=== PATIENT | female | born 1955 | race American Indian/Alaskan Native ===

== ENCOUNTER 2017-04-07 10:23 | Outpatient (CLI) | payer MEDICARE ==
--- NOTE | 2017-04-07 11:35 | Mammography Report ---
BILATERAL MAMMOGRAM: FINDINGS: The breasts are almost entirely fat (<25% glandular). No mass, distortion, suspicious calcification, or skin change is seen. There is no significant change compared to her prior exam in May 2012. CAD was utilized. IMPRESSION: Negative mammogram. There is no mammographic evidence of malignancy. RECOMMENDATION: Follow-up per ACS guidelines. BI-RADS CATEGORY: 1 = Negative ACR BI-RADS MAMMOGRAPHIC CODES: 0 = Needs additional imaging evaluation; 1 = Negative; 2 = Benign; 3 = Probably benign; 4 = Suspicious; 5 = Malignant; 6 = Known biopsy-proven malignancy COMMENT: 1. Dense breast tissue, i.e., adenosis, fibrocystic changes, etc., may obscure an underlying neoplasm. 2. Approximately 10% of cancers are not detected with mammography. 3. A negative mammography report should not delay biopsy if a clinically suspicious mass is present. COMMENT: Patient follow-up letters are generated in [employer]GEN.
== END 2017-04-07 10:24 | disposition home or self-care (01) ==
LOC: SPVWC 10:23
PROVIDERS: ATTEND Internal Medicine
DX: Z12.31 Encounter for screening mammogram for malignant neoplasm of breast (principal)
CPT/HCPCS: 77067; G0202

== ENCOUNTER 2017-04-17 15:02 | Outpatient (CLI) | payer MEDICARE ==
--- NOTE | 2017-04-18 09:04 | XRay Report ---
LUMBAR SPINE RADIOGRAPHS: INDICATION: Arthralgia of back. COMPARISON: None similar. FINDINGS: AP, oblique and lateral lumbar spine radiographs demonstrate normal vertebral body stature and alignment. Grossly preserved disc heights. Lower lumbar facet arthropathy. Lower thoracic and upper lumbar degenerative spurring. No evidence of a pars defect. Aortic atherosclerotic calcifications. Possible 9 mm lower lung calcified granuloma. Few small pelvic phleboliths. Approximately 2.5 cm calcified fibroid in the right hemipelvis. Nonobstructive bowel gas pattern. Intact SI joints. Possible osteopenia. CONCLUSION: No acute radiographic abnormality with various degenerative changes and few other findings, as described. Thank you for the opportunity to participate in this patient's care.
== END 2017-04-17 15:03 | disposition home or self-care (01) ==
LOC: SPVIMAG 15:02
PROVIDERS: ATTEND Internal Medicine
DX: M47.897 Other spondylosis, lumbosacral region (principal); M12.88 Other specific arthropathies, not elsewhere classified, other specified site; I70.0 Atherosclerosis of aorta; I87.8 Other specified disorders of veins; J84.10 Pulmonary fibrosis, unspecified
CPT/HCPCS: 72110

== ENCOUNTER 2022-03-17 19:22 | Emergency (ER) | payer MEDICARE ==
[2022-03-17] MEDS ORDERED: SODIUM CHLORIDE 0.9% 1000 ML 1,000 ML IV ONE (23:09)
--- NOTE | 2022-03-17 23:23 | Emergency Department Report ---
ED Syncope HPI - General Chief Complaint: Syncope Stated Complaint: AMS Time Seen by Provider: 03/17/22 23:01 Source: patient, EMS - History of Present Illness Initial Comments: Patient is a 67-year-old female with history of remote CVA with residual speech difficulty brought in by EMS after having 2 syncopal episodes earlier today. She is unable to recall timeline of events. She currently denies any symptoms. - Related Data Allergies/Adverse Reactions: Allergies No Known Allergies Allergy (Unverified 03/17/22 23:02) ED Review of Systems ROS: Stated complaint: AMS Other details as noted in HPI Constitutional: denies: chills, fever Respiratory: denies: cough, shortness of breath, wheezing Cardiovascular: denies: chest pain, palpitations Gastrointestinal: denies: abdominal pain, nausea, diarrhea Genitourinary: denies: urgency, dysuria, discharge Musculoskeletal: denies: back pain, joint swelling, arthralgia Skin: denies: rash, lesions Neurological: denies: headache, weakness, paresthesias Psychiatric: denies: anxiety, depression ED Past Medical Hx - Past Medical History Previous Medical History?: Yes Hx Hypertension: Yes Hx CVA: Yes Hx Seizures: Yes Additional medical history: Right Hemiparesis. Dysphagia - Surgical History Past Surgical History?: Yes Additional Surgical History: Mitral Valve Replacement - Social History Smoking Status: Current Every Day Smoker Substance Use Type: None ED Physical Exam - General Limitations: No Limitations General appearance: alert, in no apparent distress - Head Head exam: Present: atraumatic, normocephalic - Neck Neck exam: Present: normal inspection - Respiratory Respiratory exam: Present: normal lung sounds bilaterally. Absent: respiratory distress - Cardiovascular Cardiovascular Exam: Present: regular rate, normal rhythm, normal heart sounds - GI/Abdominal GI/Abdominal exam: Present: soft. Absent: distended, tenderness - Rectal Rectal exam: Present: deferred - Neurological Exam Neurological exam: Present: alert, oriented X3, other (Patient had slurring of speech however this is baseline for her post CVA) - Psychiatric Psychiatric exam: Present: normal affect, normal mood - Skin Skin exam: Present: warm, dry, intact, normal color ED Course Vital Signs 03/17/22 19:22 Temperature 98 F Pulse Rate 82 Respiratory 18 Rate Blood Pressure 115/61 O2 Sat by Pulse 98 Oximetry ED Medical Decision Making - Lab Data Result diagrams: 03/17/22 23:38 03/17/22 23:38 - Medical Decision Making Patient presenting to ED status post syncopal event. CBC and CMP unremarkable. Troponin undetectable. EKG shows sinus bradycardia with rate of 57. Left bundle branch block present. CT head shows findings of large remote CVA however no acute findings. Patient stable for discharge home with return precautions. Critical care attestation.: If time is entered above; I have spent that time in minutes in the direct care of this critically ill patient, excluding procedure time. ED Disposition Clinical Impression: Syncope Disposition: 01 HOME / SELF CARE / HOMELESS Is pt being admited?: No Does the pt Need Aspirin: No Condition: Stable Instructions: Syncope (ED), Syncope Additional Instructions: Please follow-up with your regular doctor in 1 week. You may return if your symptoms worsen.
[2022-03-18 00:04] LABS: Basophils % (Auto) 0.5 % (0.0-1.8); Eosinophils # (Auto) 0.1 K/mm3 (0.0-0.4); Eosinophils % (Auto) 1.1 % (0.0-4.3); Hematocrit 34.7 % (30.3-42.9); Hemoglobin 11.8 gm/dl (10.1-14.3); Lymphocytes # (Auto) 1.5 K/mm3 (1.2-5.4); Lymphocytes % (Auto) 15.7 % (13.4-35.0); Mean Corpuscular HGB Conc 34 % (30-34); Mean Corpuscular Volume 90 fl (79-97); Monocytes # (Auto) 0.8 K/mm3 (0.0-0.8); Monocytes % (Auto) 8.4 % (0.0-7.3); Platelet Count 251 K/mm3 (140-440); Red Blood Count 3.86 M/mm3 (3.65-5.03); Red Cell Distribution Width 16.9 % (13.2-15.2)
[2022-03-18 00:25] LABS: Alanine Aminotransferase 17 units/L (7-56); BUN/Creatinine Ratio 11; Blood Urea Nitrogen 16 mg/dL (7-17); Calcium 9.5 mg/dL (8.4-10.2); Hemolysis Index 8
[2022-03-18 06:08] VITALS: BP 136/61
--- NOTE | 2022-03-18 08:50 | Cat Scan Report ---
CT HEAD WITHOUT CONTRAST INDICATION / CLINICAL INFORMATION: Syncope, history of CVA. TECHNIQUE: All CT scans at this location are performed using CT dose reduction for ALARA by means of automated exposure control. COMPARISON: 12/30/2012 FINDINGS: BRAIN PARENCHYMA/INTRACRANIAL STRUCTURES: Large area of encephalomalacia involving the left cerebral hemisphere, most pronounced within the posterior left frontal, parietal, occipital, and temporal lobe s. There is prominent extra-axial dilatation of the occipital horn of the left lateral ventricle. Fin dings are superimposed upon moderate chronic small vessel ischemic changes. There is no evidence of a cute intracranial hemorrhage. No evidence of recent infarct. No mass effect or midline shift. ORBITS: Normal as visualized. SKELETAL SYSTEM/SOFT TISSUES: Normal bones and soft tissues. PARANASAL SINUSES/MASTOID AIR CELLS: No significant abnormality. ADDITIONAL FINDINGS: None. IMPRESSION: Large remote infarct of the left cerebral hemisphere, as above. No evidence of acute intracranial abn ormality. Signer Name: Osito Espino MD Signed: 03/18/2022 12:42 AM Workstation Name: [id number]
--- NOTE | 2022-03-20 17:02 | Electrocardiograph Report ---
[facility] Test Date: 2022-03-18 Test Time: 00:31:39 Pat Name: ANDRÉS MORRELL Department: Room: Gender: F Supervisor Garage: : 1955 Requested By: HARRISON WRIGHT Order Number: [id number] Reading MD: Karyn Anaya Measurements Intervals [place] Rate: 57 P: 8 MT: 218 QRS: -17 QRSD: 122 T: 26 QT: 490 QTc: 476 Interpretive Statements Sinus bradycardia Borderline prolonged MT interval INCOMPLETE LEFT BUNDLE BRANCH BLOCK No previous ECG available for comparison Electronically Signed On 03-20-2022 17:01:47 EDT by Karyn Anaya
== END 2022-03-18 10:11 | disposition home or self-care (01) ==
LOC: ED 19:22
DX: R55 Syncope and collapse (principal)
CPT/HCPCS: 36415; 70450; 80053; 84484; 85025; 93005; 96360; 99284